=== PATIENT | male | born 1980 | race African-American/Black ===

== ENCOUNTER 2021-12-08 09:12 | Emergency (ER) | payer SELFPAY ==
[~2021-12-08] VITALS: Ht 177.8 cm; Wt 90.0 kg
[2021-12-08] MEDS ORDERED: BACITRACIN ZINC OINT UDPKT TOP ONE (09:45)
[2021-12-08] MEDS ORDERED: TETANUS, DIPHTHERIA, PERTUSSIS VAC/PF 0.5ML (>10YR OLD) IM ONE (09:45)
[2021-12-08] MEDS ORDERED: LIDOCAINE HCL/EPINEPHRINE 1%-EPI 1:100,000 20 ML VIAL INFIL ONE (09:45)
[2021-12-08 09:59] LABS: BASOPHILS % 0.4 % (0.0-2.0); HEMOGLOBIN. 11.2 g/dL (14.0-18.0); LYMPHOCYTES % 26.5 % (20.0-50.0); MEAN CORPUSCULAR HEMOGLOBIN 27.6 pg (28.0-32.0); MEAN CORPUSCULAR VOLUME 83.6 fL (80.0-94.0); MEAN PLATELET VOLUME 6.8 fl (7.4-10.4); MONOCYTES % 6.7 % (2.0-8.0); NEUTROPHILS % 65.4 % (40.0-76.0); PLATELET 314 x1000/uL (130-400); RED BLOOD CELL COUNT 4.06 mill/uL (4.7-6.1); RED CELL DISTRIBUTION WIDTH 13.6 % (11.6-14.6)
[2021-12-08 10:10] LABS: CHLORIDE 107 mEq/L (98-107)
[2021-12-08 10:17] LABS: ETHANOL BLOOD < 10 mg/dL
[2021-12-08 11:57] VITALS: BP 128/72
[2021-12-08] MEDS ORDERED: IBUP-2029 MT (12:12)
[2021-12-08] MEDS ORDERED: CEPH500T MT (12:12)
== END 2021-12-08 11:20 | disposition home or self-care (01) ==
LOC: ER 09:22
DX: S51.811A Laceration without foreign body of right forearm, initial encounter (principal); X99.9XXA Assault by unspecified sharp object, initial encounter; Y93.89 Activity, other specified; Y92.488 Other paved roadways as the place of occurrence of the external cause
CPT/HCPCS: 12001; 36415; 80053; 80320; 85025; 90471; 90715; 99283; J3490; G0480